=== PATIENT | female | born 1985 | race Caucasian/White ===

== ENCOUNTER 2019-05-25 14:29 | Emergency (ER) | payer OTHER ==
[~2019-05-25] VITALS: Ht 154.9 cm; Wt 77.1 kg
== END 2019-05-25 15:50 | disposition home or self-care (01) ==
LOC: ER 14:29
DX: S91.242A Puncture wound with foreign body of left great toe with damage to nail, initial encounter (principal); W22.8XXA Striking against or struck by other objects, initial encounter; Y93.89 Activity, other specified; Y92.098 Other place in other non-institutional residence as the place of occurrence of the external cause; Y99.8 Other external cause status